=== PATIENT | female | born 1965 | race Caucasian/White ===

== ENCOUNTER → 2020-04-09 16:23 | Outpatient (CLI) | payer OTHER, SELFPAY ==
--- NOTE | ~2020-04-09 | MM_ITS ---
EXAMINATION: MM screening alley BI w robert HISTORY: Screening mammogram TECHNIQUE: Craniocaudal and mediolateral oblique 3-D tomosynthesis images were obtained and synthetic 2-D images were generated. CAD analysis was submitted and interpreted. COMPARISON: 03/13/2019 bilateral digital screening mammogram 04/02/2016 diagnostic right digital mammogram 03/27/2016 bilateral digital screening mammogram BREAST PARENCHYMAL COMPOSITION: There are scattered areas of fibroglandular density. FINDINGS: A biopsy marker is present on the left. History of bilateral prior benign breast biopsies/l umpectomies. Mild stable asymmetry. Minimal benign calcification. Occasional low-density small circum scribed benign-appearing opacities. There is no evidence of suspicious mass, calcification, or gokul ectural distortion to suggest malignancy in either breast. There has been no suspicious interval miller ge. IMPRESSION: 1. No mammographic evidence of malignancy. 2. Recommend routine screening mammography in one year. BI-RADS Category 2: Benign finding(s). Reviewed, dictated and finalized at location A. LER
== END ==
DX: Z12.31 Encounter for screening mammogram for malignant neoplasm of breast (principal)
CPT/HCPCS: 77063; 77067

== ENCOUNTER → 2020-09-10 09:59 | Outpatient (CLI) | payer BC, SELFPAY ==
--- NOTE | ~2020-09-10 | US_ITS ---
US axilla RT DATE: 09/10/2020 10:14 INDICATION: Swelling, pain in right axilla TECHNIQUE: High-resolution ultrasound imaging and color flow imaging of the right axillary soft tissu es COMPARISON: 04/09/2020 bilateral digital screening mammogram FINDINGS: At the area of clinical complaint of pain and swelling is a 2.2 x 1.2 x 2 cm lymph node with uniform thickness and echogenicity of the cortex and prominent fatty hilus. Additional smaller lymph nodes measuring 2 x 1.1 x 1.2 cm and 1.7 x 1.1 x 1.5 cm are noted. IMPRESSION: 1. Nonspecific right axillary lymph nodes 2. Consider repeat right mammogram with possible right breast ultrasound BI-RADS Category 0: Incomplete; consider right diagnostic mammogram with possible right breast ultras ound as clinically appropriate Reviewed, dictated and finalized at Location A. Reviewed, dictated and finalized at location A. IMPRESSION: 1. Nonspecific right axillary lymph nodes 2. Consider repeat right mammogram with possible right breast ultrasound BI-RADS Category 0: Incomplete; consider right diagnostic mammogram with possib le right breast ultrasound as clinically appropriate
== END ==
DX: M79.89 Other specified soft tissue disorders (principal)
CPT/HCPCS: 76882

== ENCOUNTER 2020-10-17 07:57 | Outpatient (CLI) | payer BC, SELFPAY ==
--- NOTE | ~2020-10-17 | MM_ITS ---
EXAMINATION: MM diagnostic alley RT w robert HISTORY: Prior history of right axillary swelling. TECHNIQUE: Additional 3-D tomosynthesis images of the right breast were performed and synthetic 2-D i mages were generated. CAD analysis was submitted and interpreted. COMPARISON: Comparison to multiple prior studies sequentially, with oldest reviewed study dated 10/12. BREAST PARENCHYMAL COMPOSITION: Breast composed of scattered areas of fibroglandular density. FINDINGS: Stable appearance to right axillary lymph node with normal fatty hilum. No new masses, calc ifications or architectural distortion in the right breast to suggest malignancy. IMPRESSION: 1. No mammographic evidence for malignancy in the right breast. 2. Routine yearly screening mammogram and regular clinical breast examination are recommended. BI-RADS Category 1: Negative Reviewed, dictated and finalized at location A. IMPRESSION: 1. No mammographic evidence for malignancy in the right breast. 2. Routine yearly screening mammogram and regular clinical breast examination a re recommended. BI-RADS Category 1: Negative
== END 2020-10-17 07:58 ==
DX: R92.8 Other abnormal and inconclusive findings on diagnostic imaging of breast (principal)
CPT/HCPCS: 77061; 77065; G0279

== ENCOUNTER 2022-11-16 22:50 | Emergency (ER) | payer MEDICARE, BC, SELFPAY ==
--- NOTE | ~2022-11-16 | CT_ITS ---
EXAMINATION: CT abdomen pelvis w con INDICATION: Right flank pain TECHNIQUE: Computed tomographic images of the abdomen and pelvis were obtained after the administrati on of 100 cc of Omnipaque 350 intravenous contrast. The dose-length product (DLP) was 1061.98 mGy-cm. Automated exposure control and iterative reconstruction technique were employed. COMPARISON: 10/21/2012 FINDINGS: Minimal dependent atelectasis is present in the lung bases. The heart size is normal. There are changes of cholecystectomy. The spleen, pancreas, gallbladder, and adrenal glands are normal. Th e kidneys are unremarkable. A chronic curvilinear metallic density is present in liver segment IVb. N o pathologically enlarged abdominal or pelvic lymph nodes are identified. No free intraperitoneal gas or evidence of bowel obstruction. There is mild lumbar spondylosis. There is an umbilical hernia con taining fat. IMPRESSION: 1. No CT correlate for the patient's symptoms. Reviewed, dictated and finalized at location A.
[2022-11-16 23:26] VITALS: BP 153/78; PULSE 78; RESP 14; TEMP 36.5; O2SAT 100
[2022-11-16 23:43] LABS: Basophils Absolute Auto 0.1 K/mm3 (0.0-0.1); Basophils Percent Auto 0.4 % (0.2-1.2); Eosinophils Absolute Auto 0.2 K/mm3 (0-0.3); Eosinophils Percent Auto 1.8 % (0-4.4); Hematocrit 38.1 % (37.0-47.0); Hemoglobin 12.6 g/dL (12.0-15.0); Immature Granulocyte Absolute 0.05 K/mm3 (0.00-0.031); Immature Granulocyte Percent A 0.4 % (0-0.5); Lymphocytes Absolute Auto 3.53 K/mm3 (0.9-3.2); Lymphocytes Percent Auto 26.1 % (18.3-44.2); Mean Corpuscular HGB Conc 33.1 g/dl (32-36); Mean Corpuscular Hemoglobin 29.3 pg (26-34); Mean Corpuscular Volume 88.6 fl (80-100); Mean Platelet Volume 10.7 fl (7.4-10.4); Monocytes Percent Auto 7.1 % (2.6-8.5); Neutrophils Absolute Auto 8.7 K/mm3 (1.3-6.7); Neutrophils Percent Auto 64.2 % (45.5-73.1); Platelet Count Result 298 k/mm3 (150-375); Red Cell Distribution Width 14.4 % (11.5-14.5); White Blood Count 13.5 K/mm3 (4.5-10.0)
[2022-11-16 23:51] LABS: Appearance Urine Clear (Clear); Bilirubin Urine Negative (Negative); Blood Urine Negative (Negative); Color Urine Yellow (Yellow); Glucose Urine UA Negative (Negative); Ketones Urine Negative (Negative); Leukocyte Esterase Ur Negative LEU/UL (Negative); Nitrate Urine Negative (Negative); Protein Urine Negative (Negative); Specific Grav Ur 1.025 (1.001-1.035); pH Urine 5.5 (5.0-9.0)
[2022-11-16 23:55] LABS: Add Urine Microscopic? NO
[2022-11-16 23:58] LABS: Alanine Aminotransferase 25 U/L (6-35); Albumin Level 4.3 g/dL (3.5-5.1); Alkaline Phosphatase 75 U/L (38-126); Anion Gap 8 mmol/L (8-16); Aspartate Amino Transferase 22 U/L (14-36); Bilirubin,Total 0.2 mg/dL (0.2-1.3); Blood Urea Nitrogen 23 mg/dL (7-17); Calcium 9.2 mg/dL (8.4-10.2); Carbon Dioxide 26 mmol/L (22-30); Chloride 104 mmol/L (98-107); Estimated CRCL calculation 78 ml/min; Estimated Glomerular Filt Rate > 60; Glucose 116 mg/dL (65-110); Potassium 4.2 mmol/L (3.4-5.0); Sodium 138 mmol/L (137-145)
[2022-11-17 00:02] VITALS: BP 132/64; PULSE 73; RESP 16; O2SAT 96
--- NOTE | 2022-11-17 00:18 | ED.ABDPAIN ---
HPI - Abdominal Pain General Chief Complaint: Back Pain/Injury <GEETHA Erickson Last Filed: 11/24/22 09:16> Stated Complaint: R back pain, radiates to abd <GEETHA Erickson Last Filed: 11/24/22 09:16> Time Seen by Provider: 11/16/22 23:58 <GEETHA Erickson Last Filed: 11/24/22 09:16> Source: patient <GEETHA Erickson Last Filed: 11/24/22 09:16> Mode of arrival: ambulatory <GEETHA Erickson Last Filed: 11/24/22 09:16> Limitations: no limitations <GEETHA Erickson Last Filed: 11/24/22 09:16> History of Present Illness HPI narrative: This is a 56-year-old female that presents to the emergency department for right-sided flank pain present over the last 2 days. Associated with nausea. Reports the pain radiates into her abdomen. The pain comes and goes. Denies any other associated symptoms. Denies fever, vomiting, diarrhea, dysuria, or hematuria <GEETHA Erickson Last Filed: 11/24/22 09:16> Related Data Allergies/Adverse Reactions: Allergies Allergy/AdvReac Type Severity Reaction Status Date / Time OPIUM Allergy Severe PAREGORIC Uncoded 07/19/18 12:35 ALLERGY (AKA CAMPHORATED TINCTURE OF OPIUM) PARAGORIC Allergy Severe SWELLING Uncoded 11/15/12 15:08 <GEETHA Erickson Last Filed: 11/24/22 09:16> Review of Systems Review of Systems: CONSTITUTIONAL: Denies fever GASTROINTESTINAL: Reports abdominal pain, nausea. Denies vomiting, or diarrhea. GENITOURINARY: Denies dysuria or hematuria. SKIN: Denies rash MUSCULOSKELETAL: Reports back pain <GEETHA Erickson Last Filed: 11/24/22 09:16> All systems reviewed & are unremarkable except as noted in HPI and below <GEETHA Erickson Last Filed: 11/24/22 09:16> [facility] Past Medical History Medical History: Medical History (Updated 11/24/22 @ 09:16 by Carolee Hogue PA-C) History of hyperlipidemia <Carolee Hogue PA-C - Last Filed: 11/24/22 09:16> Surgical History Surgical History: Surgical History (Updated 11/17/22 @ 00:21 by Carolee Hogue PA-C) History of appendectomy History of cholecystectomy History of hysterectomy <Carolee Hogue PA-C - Last Filed: 11/24/22 09:16> Social History Social History: Social History (Updated 11/17/22 @ 00:20 by Carolee Hogue PA-C) Substance use: never <Carolee Hogue PA-C - Last Filed: 11/24/22 09:16> Exam Narrative: GENERAL: Well-appearing, well-nourished, and in no acute distress. HEAD: Normocephalic, atraumatic. EYES: EOMI. CHEST: Clear to auscultation. No respiratory distress. No wheezes rales or rhonchi HEART: Regular rate and rhythm. No murmur heard. Normal peripheral pulses. ABDOMEN: Soft, nondistended, normal active bowel sounds. Mild tenderness to palpation throughout the mid to lower right abdomen, without guarding. No CVA tenderness EXTREMITIES: Normal range of motion. No edema. SKIN: Warm, dry, no rash. NEURO: No focal deficits. Alert and oriented x3. PSYCH: Normal mood and affect <Carolee Hogue PA-C - Last Filed: 11/24/22 09:16> Course Course Emergency Course: Patient and family updated on workup thus far <Carolee Hogue PA-C - Last Filed: 11/24/22 09:16> CHART COMPUTER/PA Physician Supervision This is a was performed by both a physician and an APC. I performed all aspects of the MDM as documented w/ the following additions: 56-year-old female presenting with back and abdominal pain. Workup was negative. Re-evaluation patient says she has had this pain frequently in the past and usually results in its own. Patient will be discharged with a trial of pain medication. All questions answered. Patient in agreement w/ disposition. <Jordy Smith MD - Last Filed: 11/17/22 04:17> Vital Signs Vital signs: Vital Signs Temperature 97.7 F 11/16/22 23:26 Pulse Rate 78 11/16/22 23:26 Respiratory Rate 14 11/16
[2022-11-17 01:27] VITALS: BP 126/65; PULSE 70; RESP 16; O2SAT 98
[2022-11-17 02:43] VITALS: PULSE 71; RESP 14; O2SAT 96
[2022-11-17 03:41] LABS: Lipase 36 U/L (23-300)
[2022-11-17 04:16] VITALS: BP 124/65
[2022-11-17 04:21] VITALS: PULSE 82; RESP 18; O2SAT 97
== END 2022-11-17 04:23 | disposition home or self-care (01) ==
PROVIDERS: Emergency Medicine; Emergency Provider Physician Assistant
DX: R10.9 Unspecified abdominal pain (principal); M54.9 Dorsalgia, unspecified; E78.5 Hyperlipidemia, unspecified; Z90.49 Acquired absence of other specified parts of digestive tract; Z90.710 Acquired absence of both cervix and uterus
CPT/HCPCS: 36415; 74177; 80053; 81003; 83690; 85025; 99284; Q9967

== ENCOUNTER 2025-02-22 18:24 | Emergency (ER) | payer MEDICARE, BC, SELFPAY ==
--- NOTE | ~2025-02-22 | XR_ITS ---
EXAMINATION: XR hip RT 2V w AP pelvis DATE: 02/22/2025 21:08 INDICATION: Right hip pain post fall TECHNIQUE: Anteroposterior view of the pelvis and anteroposterior and frog-leg lateral views of the right hip were obtained. COMPARISON: None. FINDINGS: Bone alignment is normal. No fracture. 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 Soft tissues are unremarkable. IMPRESSION: 1. Mild degenerative skeletal changes in the pelvis and lower lumbar spine. No acute osseous abnormality. Reviewed, dictated and finalized at location A.
[2025-02-22 18:21] VITALS: BP 140/77; PULSE 118; RESP 14; TEMP 36.4; O2SAT 92
--- NOTE | 2025-02-22 18:28 | ECG_ITS ---
Test Date: 2025-02-22 18:28:25 Measurements Intervals [place] Rate: 110 P: 49 [place]: 142 QRS: 3 QRSD: 96 T: 46 QT: 337 QTc: 457 Interpretive Statements SINUS TACHYCARDIA DELAYED PRECORDIAL R/S TRANSITION ST-T WAVE ABNORMALITY IN ANTERLATERAL LEADS- CONSIDER ISCHEMIA ABNORMAL ECG No previous ECG available for comparison Electronically Signed On 02-23-2025 10:19:52 CDT by Akash Agosto D.O.
[2025-02-22 18:30] VITALS: O2SAT 95; O2SAT 96
--- NOTE | 2025-02-22 18:41 | ED.ALLEREA ---
HPI - Allergic Reaction General Chief complaint: Allergic Reaction Stated complaint: allergic reaction, difficulty in breathing Time Seen by Provider: 02/22/25 18:29 History of Present Illness HPI narrative: This is a 59-year-old female who presents the ED via EMS for anaphylaxis. Patient states that she was doing yd work when she was formed by [employer]. She believes she was stung up to 10 times by these. She has no known history of allergies or anaphylaxis. She was seen in urgent care for this when she apparently became lightheaded and did syncopize. Per EMS, she was given 125 mg Solu-Medrol by urgent care and 0.5 mg epinephrine IM EN route. Patient reports that her symptoms are better. She denies shortness of breath, chest pain, vomiting. She does report a diffuse rash. Related Data Home Medications ?Medication ?Instructions ?Recorded ?Confirmed ?Last Taken ?Type ascorbic acid (vitamin C) 500 mg mg PO 12/10/23 Unknown History capsule hydroxychloroquine 200 mg tablet 200 mg PO DAILY 12/10/23 Unknown History meloxicam 7.5 mg tablet 7.5 mg PO DAILY 12/10/23 Unknown History multivitamin 1 tablet PO DAILY 12/10/23 Unknown History sulfasalazine 500 mg tablet 1 g PO DAILY 12/10/23 Unknown History tramadol 50 mg tablet 50 mg PO Q6H PRN 12/10/23 Unknown History Allergies Allergy/AdvReac Type Severity Reaction Status Date / Time opium tincture Allergy Unknown Unknown Verified 02/22/25 18:47 PARAGORIC Allergy Severe SWELLING Uncoded 03/10/24 07:17 Review of Systems Review of Systems: Gen.: Denies fevers or chills Eyes: Denies eye pain or visual change ENT: Denies congestion Respiratory: As per HPI CV: Denies chest pain or palpitations GI: Denies abdominal pain nausea, emesis or diarrhea denies burning, urgency, frequency or hematuria Musculoskeletal: Denies back pain or muscle pain Neuro: Denies numbness, tingling, weakness or focal weakness Skin: As per HPI Except as documented, all other systems reviewed and negative [facility] Past Medical History Medical History History of hyperlipidemia Surgical History Surgical History History of appendectomy History of hysterectomy History of cholecystectomy Social History Social History Smoking status: Never smoker Substance use: never Do You Feel Safe in your Home?: Yes Lack of Transportation: No Lack of Food: Never True Current Housing: I Have Housing Concerned About Future Housing: No Difficulty Paying Gas/Electric Bills: No Difficulty Paying for Meds: No Currently Unemployed: No Education: High School Diploma/GED Difficulty w/ Childcare or Family Care: No Exam Narrative: APPEARANCE: No acute distress, nontoxic, resting in bed EYES: EOMI HEENT: Normocephalic, atraumatic, OMM RESPIRATORY: No respiratory distress Clear to auscultation bilaterally with no rhonchi wheezing or rales. CARDIOVASCULAR: Regular rate and rhythm without murmurs rubs or gallops. ABDOMINAL: Soft, nontender, nondistended, no rebound or guarding MUSCULOSKELETAl: Moves all extremities. No clubbing, cyanosis or edema. NEURO: Awake and alert. Following commands, speech normal, no focal deficits SKIN:: Diffuse urticaria rash PSYCHIATRIC: Normal affect/mood, Course Vital Signs Vital signs: Vital Signs Temperature 97.5 F L 02/22/25 18:21 Pulse Rate 118 H 02/22/25 18:21 Respiratory Rate 14 02/22/25 18:21 Blood Pressure 140/77 02/22/25 18:21 Pulse Oximetry 92 02/22/25 18:21 Oxygen Delivery Room Air 02/22/25 18:21 Temperature 97.8 F 02/22/25 21:57 Pulse Rate 97 02/22/25 21:57 Respiratory Rate 20 02/22/25 21:57 Blood Pressure 145/76 H 02/22/25 21:57 Pulse Oximetry 96 02/22/25 21:57 Oxygen Delivery Room Air 02/22/25 19:50 Oxygen Flow Rate 2 02/22/25 18:30 MDM - Allergic Reaction MDM Narrative Medical decision making narrative: 59-year-old female presenting for anaphylaxis due to Hymenoptera. On initial evaluation, patient was in no acute distress, afebrile, tachycardic to the 110s. Heart and lungs were clear otherwise. She did have a diffuse urticarial rash. Her sats were in the 80s but she had no shortness of breath. Because of this, she was placed on 2 L nasal cannula. This did persist so she was given a DuoNeb despite there being no wheezing. She was able to be weaned from the oxygen. Patient subsequently was complaining of right hip pain since her syncope and was having difficulty moving it. X-rays obtained showed no evidence of fractures. She was given Toradol and Flexeril with this with significant improvement of her symptoms. She was able ambulate without significant difficulty. She will be started on prednisone for her anaphylaxis. She was advised follow-up with her PCP in the next few days for re-evaluation. Patient was agreeable to this plan. Given strict return precautions. CRITICAL CARE Indication: anaphylaxis Time type: intermittent I provided a total of 35 minutes of critical care excluding separately billable procedures. This includes time w/ EMS, initial bedside evaluation, reviewing old records, review of testing done while under my care, discussion w/ the family, nurses, systems development consultant and guiding the patient?s care while in the emergency department. Medical Records Attestation: I reviewed the patient's medical records. Imaging Data Attestation: I personally reviewed and interpreted this imaging study as follows: (X-ray right hip and pelvis: No acute fractures) Discharge Plan Discharge Clinical Impression: Anaphylaxis due to hymenoptera venom Qualifiers: Encounter type: initial encounter Injury intent: accidental or unintentional Qualified Code(s): T63.481A - Toxic effect of venom of other arthropod, accidental (unintentional), initial encounter Patient Disposition: Home Condition: Stable Instructions: Antibiotic Form, Anaphylaxis (ED) Additional Instructions: Take prednisone as prescribed. You may take Tylenol and ibuprofen for hip pain. Follow-up with your PCP in the next few days for re-evaluation. Return to the ED for any new or worsening symptoms. Patient Language: Bengali Prescriptions: New prednisone 20 mg tablet 20 mg PO DAILY Qty: 5 0RF No Action meloxicam 7.5 mg tablet 7.5 mg PO DAILY sulfasalazine 500 mg tablet 1 g PO DAILY tramadol 50 mg tablet 50 mg PO Q6H PRN hydroxychloroquine 200 mg tablet 200 mg PO DAILY ascorbic acid (vitamin C) 500 mg capsule PO multivitamin Tablet 1 tablet PO DAILY Follow-up/Referrals: Alma Chakraborty MD [Physician, Family Practice] UNKNOWN,DOCTOR [Primary Care Provider] Stand Alone Forms: Work/School Release IP
[2025-02-22 18:53] VITALS: PULSE 104; RESP 18
[2025-02-22] MEDS: IPRATROPIUM 0.5 MG/ALBUTEROL SULFATE 2.5 MG (BASE) AMPUL.NEB 3 ML INHALATION (18:53)
[2025-02-22 19:03] VITALS: PULSE 96; RESP 18
[2025-02-22 19:50] VITALS: BP 137/72; PULSE 104; RESP 20; O2SAT 100
[2025-02-22] MEDS: ONDANSETRON INJ 4 MG/2 ML VIAL IV PUSH (19:53)
[2025-02-22] MEDS: KETOROLAC 30 MG/ML VIAL (*BKC) IV PUSH (21:11)
[2025-02-22] MEDS: CYCLOBENZAPRINE HCL 10 MG TABLET PO (21:11)
[2025-02-22 21:57] VITALS: BP 145/76; PULSE 97; RESP 20; TEMP 36.6; O2SAT 96
== END 2025-02-22 21:58 | disposition home or self-care (01) ==
PROVIDERS: Emergency Provider Student in an Organized Health Care Education/Training Program
DX: T63.441A Toxic effect of venom of bees, accidental (unintentional), initial encounter (principal); E78.5 Hyperlipidemia, unspecified; Z90.49 Acquired absence of other specified parts of digestive tract; Z90.710 Acquired absence of both cervix and uterus; R94.31 Abnormal electrocardiogram [ECG] [EKG]; R00.0 Tachycardia, unspecified
CPT/HCPCS: 73502; 93005; 94640; 96374; 96375; 99284; A9270; J1885; J2405